=== PATIENT | female | born 1980 | race American Indian/Alaskan Native ===

== ENCOUNTER 2019-01-05 18:28 | Emergency (ER) | payer MEDICAID ==
[2019-01-05 18:33] VITALS: O2SAT 98
--- NOTE | 2019-01-05 19:39 | ED PDOC ---
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 otherwise offers no medical complaints Past Medical History Reviewed: Historical Data, Nursing Documentation, Vital Signs Vital Signs: Last Vital Signs Temp 98.4 F 01/05/19 18:33 Pulse 80 01/05/19 18:33 Resp 16 01/05/19 18:33 BP 111/85 01/05/19 18:33 Pulse Ox 98 01/05/19 18:33 - Medical History PMH: Schizophrenia (reports that this diagnosis was given to her by courts but does not have it) - Surgical History Surgical History: Hernia Repair - Family History Family History: States: No Known Family Hx - Social History Current smoker - smoking cessation education provided: No Alcohol: None Drugs: Denies - Home Medications Home Medications: Ambulatory Orders Medication Instructions Recorded Benztropine [Benztropine Mesylate] 2 mg PO BID PRN #10 tab 01/05/19 - Allergies Allergies/Adverse Reactions: Allergies Allergy/AdvReac Type Severity Reaction Status Date / Time haloperidol [From Haldol] Allergy ANAPHYLAXIS Verified 01/05/19 18:32 lithium Allergy ANAPHYLAXIS Verified 01/05/19 18:32 Penicillins Allergy RASH Verified 01/05/19 18:32 ziprasidone [From Geodon] Allergy RASH Verified 01/05/19 18:32 Review of Systems ROS Statement: Except As Marked, All Systems Reviewed And Found Negative (and as per HPI) Eyes: Positive for: Other (involuntary eye movements) Psych: Negative for: Anxiety, Depression, Psychosis, Suicidal ideation, Withdrawal Physical Exam - Reviewed Nursing Documentation Reviewed: Yes Vital Signs Reviewed: Yes - Physical Exam Appears: Positive for: Well, Non-toxic Head Exam: Positive for: ATRAUMATIC, NORMOCEPHALIC Skin: Positive for: Warm, Dry Eye Exam: Positive for: Normal appearance, EOMI, PERRL. Negative for: Nystagmus ENT: Positive for: Normal ENT Inspection Neck: Positive for: Painless ROM, Supple Cardiovascular/Chest: Positive for: Regular Rate, Rhythm. Negative for: Murmur Respiratory: Positive for: Normal Breath Sounds. Negative for: Respiratory Distress Gastrointestinal/Abdominal: Positive for: Soft. Negative for: Tenderness Back: Positive for: Normal Inspection. Negative for: Decreased ROM Extremity: Positive for: Normal ROM. Negative for: Deformity Lymphatic: Negative for: Adenopathy Neurological/Psych: Positive for: Awake, Alert, Oriented, Mood/Affect (normal mood and normal affect), management professional II-XII (intact). Negative for: Motor/Sensory Deficits - ECG O2 Sat by Pulse Oximetry: 98 Disposition - Clinical Impression Clinical Impression: Dystonic drug reaction Counseled Patient/Family Regarding: Diagnosis, Need For Followup, Rx Given - Disposition Referrals: [facility] [Outside] (PLEASE FOLLOWUP WITH [facility] POSSIBLE FOR FURTHER MANAGEMENT YOU CAN ALSO FOLLOWUP AT [facility] FOR MORE URGENT SERVICES/MEDICATIONS) Disposition: Routine/Home Disposition Time: 19:40 Condition: STABLE Prescriptions: Benztropine [Benztropine Mesylate] 2 mg PO BID PRN #10 tab PRN Reason: dytonic reaction due to haldol Instructions: Tardive Dyskinesia
[2019-01-05 20:08] VITALS: BP 122/69; PULSE 76; RESP 15; TEMP 98.1
== END 2019-01-05 20:08 | disposition home or self-care (01) ==
LOC: H.ER 18:28
DX: G24.9 Dystonia, unspecified (principal); T50.905A Adverse effect of unspecified drugs, medicaments and biological substances, initial encounter
CPT/HCPCS: 96372; 99283; J0515